=== PATIENT | female | born 1970 | race Caucasian/White ===

== ENCOUNTER → 2017-02-16 | Outpatient (CLI) | payer BC ==
--- NOTE | 2017-02-16 13:35 | US ---
EXAMINATION TYPE: US renals and bladder DATE OF EXAM: 02/16/2017 1:23 PM COMPARISON: NONE CLINICAL HISTORY: R31.0 GROSS HEMATURIA. Pain, Frequent UTI EXAM MEASUREMENTS: Right Kidney: 11.4 x 5.8 x 4.6 cm Left Kidney: 10.6 x 4.1 x 4.9 cm Right Kidney: wnl Left Kidney: wnl Bladder: distended, wnl Bilateral Jets seen IMPRESSION: NORMAL RENAL ULTRASOUND.
== END ==
LOC: RADUSWWP 12:02
PROVIDERS: ATTEND Family Medicine
DX: R31.0 Gross hematuria (principal)
CPT/HCPCS: 76770; 81001; 87077; 87086; 87186

== ENCOUNTER → 2018-09-24 | Outpatient (CLI) | payer BC ==
--- NOTE | 2018-09-24 10:13 | US ---
EXAMINATION TYPE: US mass soft tissue chest/back DATE OF EXAM: 09/24/2018 COMPARISON: NONE CLINICAL HISTORY: Right upper back mass R22.2. Pt states palpable lump right upper back x 10 years Complex, heterogeneous hypoechoic lesion at pt's palpable= 3.7 x 1.5 x 3.1 cm, no blood flow visual ized within 7 images saved show well-defined oval heterogeneous hypoechoic lesion with increased through transmis gibran in the subcutaneous tissue just below the dermis favoring nonsimple fluid. IMPRESSION: As above, etiology uncertain, hematoma and debris-filled cyst are in differential. Imagi ng guided aspiration can be attempted if desired.
== END | disposition home or self-care (01) ==
LOC: RADUSWWP 09:36
PROVIDERS: ATTEND Family Medicine
DX: L98.8 Other specified disorders of the skin and subcutaneous tissue (principal)